=== PATIENT | male | born 2000 | race Caucasian/White ===

== ENCOUNTER 2025-01-31 18:34 | Emergency (ER) | payer OTHER, SELFPAY ==
--- NOTE | ~2025-01-31 | XR_ITS ---
[id number] INDICATION: Right anterior lower rib pain COMPARISON: NONE PA CHEST: No acute pulmonary process is evident. Cardiac size and pulmonary vascularity are unremarkable There is no pleural effusion or pneumothorax. No consolidation is identified. RIGHT RIBS: 3 views of the right ribs demonstrate no acute rib fracture. IMPRESSION: 1. No acute pulmonary process. 2. No rib fracture is identified. Reviewed, dictated and finalized at location S.
[2025-01-31 18:51] VITALS: BP 120/72; PULSE 63; RESP 18; TEMP 37.1; O2SAT 99
--- NOTE | 2025-01-31 19:14 | ED.GENADULT ---
HPI - General Adult General Chief complaint: Unspecified Stated complaint: Right Side Pain Time Seen by Provider: 01/31/25 18:34 Source: patient Mode of arrival: ambulatory Limitations: no limitations History of Present Illness HPI narrative: Patient is a 24-year-old male who presents with right anterolateral rib pain for 3 days. Patient states he was working in a [place] accidentally swung an I-beam into his ribs. Patient did catch the I-beam so it did not knock him off of his feet. Patient having increased pain since yesterday with movement and breathing. Denies any shortness of breath or pain at rest. Related Data Allergies Allergy/AdvReac Type Severity Reaction Status Date / Time No Known Allergies Allergy Unknown Verified 01/31/25 18:42 Review of Systems Review of Systems: All systems reviewed & are unremarkable except as noted in HPI and below Constitutional: Constitutional: Denies body ache(s), Denies chills, Denies fatigue, Denies fever(s), Denies headache(s), Denies malaise and Denies weakness Eyes: Eyes: Denies blurry vision, Denies irritation and Denies loss of vision ENT: Denies otalgia, Denies headache(s), Denies nasal discharge, Denies sinus pain and Denies sore throat Cardiovascular: Cardiovascular: Denies chest pain, Denies irregular heart rhythm, Denies dyspnea and Reports dyspnea on exertion Respiratory: Respiratory: Denies dyspnea and Reports other (rib pain) Gastrointestinal: Gastrointestinal: Denies abdominal pain, Denies melena, Denies hematochezia, Denies diarrhea, Denies nausea and Denies vomiting Musculoskeletal: Musculoskeletal: Denies back pain, Denies myalgias and Denies arthralgias Integumentary/Breasts: Skin/Breast: Denies pruritus and Denies rash Neurologic: Denies headache(s), Denies loss of vision and Denies weakness Psychiatric: Psychiatric: Reports no additional psychiatric complaints Endocrine: Endocrine: Denies fatigue PMFSH Comments At time of signature, agree with nursing past medical, surgical, social and family history. There is no relevant family history pertinent to the presenting complaint. Exam Const: General: cooperative, healthy appearing, comfortable, no acute distress and well nourished Nutritional Appearance: well nourished Orientation/consciousness: patient oriented x3 Limitations: no limitations HENMT: Head: normal to inspection, normocephalic and atraumatic Ears: hearing grossly normal bilaterally and external ears normal Face/Nose/Sinus: Normal external nose present, normal facial exam and face symmetric Face and sinus: normal facial exam and face symmetric Mouth: Yes lip normal Eyes: General: appearance normal, both eyes and all related structures Alignment and Position: alignment normal and position normal Periorbital: periorbital findings normal Eyelids: eyelids normal Pupils: Equal, round and reactive pupils present EOM: EOMs intact bilaterally Neck: Neck: normal visual inspection, full ROM and supple Chest: Chest palpation & inspection: normal inspection of the chest and tenderness rib (No ecchymosis) right mid-clavicular line involving the 9th rib and involving the 10th rib Resp: Effort & Inspection: normal respiratory effort and able to speak in complete sentences Auscultation: clear to auscultation bilaterally Cardio: Rate: regular rate Rhythm: regular rhythm Heart sounds: S1 normal heart sound present and S2 normal heart sound present GI: Inspection: normal to inspection Skin: General skin exam: normal color and no rashes or lesions noted Neuro: General: patient oriented x3 and moves all extremities Cranial nerves: Yes Equal, round and reactive pupils present Speech: normal speech Gait exam (Neuro): Normal gait present Extrem: General: normal to inspection, full ROM and no edema Psych: Appearance: grossly normal and well kempt Mental Status: mental status grossly normal Speech and movement: Normal speech and movement present Affect: normal affect Attitude: cooperative Thought process: Normal thought process present Course Course Emergency Course: Patient is aware of diagnosis, understands and agrees to treatment plan. Anticipatory guidance given. Patient agrees to follow-up as directed and is aware of reasons to seek care at the emergency department. Portions of this record may have been created with voice recognition software Level of Care: Express Care Visit Vital Signs Vital signs: Vital Signs Temperature 37.1 C 01/31/25 18:51 Pulse Rate 63 01/31/25 18:51 Respiratory Rate 18 01/31/25 18:51 Blood Pressure 120/72 01/31/25 18:51 Pulse Oximetry 99 01/31/25 18:51 Oxygen Delivery Room Air 01/31/25 18:51 Temperature 37.1 C 01/31/25 18:51 Pulse Rate 63 01/31/25 18:51 Respiratory Rate 18 01/31/25 18:51 Blood Pressure 120/72 01/31/25 18:51 Pulse Oximetry 99 01/31/25 18:51 Oxygen Delivery Room Air 01/31/25 18:51 Reviewed Medical Decision Making MDM Narrative Medical decision making narrative: Patient reports he has had dislocated ribs in the past and had a have a chiropractor but then back in place. Patient is aware on conservative treatments for rib pain. Will treat with ibuprofen and some muscle relaxers in case patient experiences spasms. Pt well hydrated appearing, in no respiratory distress, hemodynamically stable. Recommend supportive care. The patient is stable at time of discharge the clinical impression was discussed and the patient was given the opportunity to ask questions, which were addressed as completely as possible given the information available at present. Anticipatory guidance and return to care precautions were discussed and the importance of primary care follow-up was stressed and encouraged. The patient voiced understanding of the plan, indications to return, and the need for follow-up. Exam findings show no acute concerns or changes Patient is appropriate for outpatient treatment and follow-up. Differential Diagnosis Differential Diagnosis: Rib fracture, rib contusion Vital Signs Vital Signs: Vital Signs Temperature 37.1 C 01/31/25 18:51 Pulse Rate 63 01/31/25 18:51 Respiratory Rate 18 01/31/25 18:51 Blood Pressure 120/72 01/31/25 18:51 Pulse Oximetry 99 01/31/25 18:51 Oxygen Delivery Room Air 01/31/25 18:51 Temperature 37.1 C 01/31/25 18:51 Pulse Rate 63 01/31/25 18:51 Respiratory Rate 18 01/31/25 18:51 Blood Pressure 120/72 01/31/25 18:51 Pulse Oximetry 99 01/31/25 18:51 Oxygen Delivery Room Air 01/31/25 18:51 Reviewed Imaging Data Radiologist's impression: [id number] INDICATION: Right anterior lower rib pain COMPARISON: NONE PA CHEST: No acute pulmonary process is evident. Cardiac size and pulmonary vascularity are unremarkable There is no pleural effusion or pneumothorax. No consolidation is identified. RIGHT RIBS: 3 views of the right ribs demonstrate no acute rib fracture. IMPRESSION: 1. No acute pulmonary process. 2. No rib fracture is identified. Reviewed, dictated and finalized at location S. Discharge Plan Discharge Clinical Impression: Contusion of rib on right side Qualifiers: Encounter type: initial encounter Qualified Code(s): S29.8XXA - Other specified injuries of thorax, initial encounter Patient Disposition: Home Condition: Stable Instructions: Rib Contusion (ED) Additional Instructions: Pain may get worse for a week and last for up to eight weeks.The most important thing is to get your pain under control. Breathing exercises will not be effective unless your pain is controlled. Take your pain relieving medications as prescribed by your doctor, and continue to speak with your primary care doctor about maintaining your pain relief. Strenuous activities should be avoided for the first 3-4 weeks, after which you can commence physical activity as pain allows. If the pain is increasing you may be doing too much. Cough and deep breath at least 10 times per hour. Try holding a cushion firmly against the painful site when you mac and cough to decrease the pain. Sit out of bed and keep moving as much as you feel comfortable. This will decrease the risk of developing lung complications. Patient Language: Macedonian Prescriptions: New ibuprofen 600 mg tablet 600 mg PO TID PRN (Reason: pain) Qty: 30 0RF baclofen 10 mg tablet 10 mg PO TID 5 Days Qty: 15 0RF Follow-up/Referrals: Leila,Rj Lilly MD [Primary Care Provider, Unknown] - 3 Days Stand Alone Forms: Work/School Release IP Time of Disposition: 19:36
== END 2025-01-31 19:38 | disposition home or self-care (01) ==
PROVIDERS: Emergency Provider Nurse Practitioner Family; PCP Family Medicine
DX: S20.211A Contusion of right front wall of thorax, initial encounter (principal); W20.8XXA Other cause of strike by thrown, projected or falling object, initial encounter; Y99.0 Civilian activity done for income or pay
CPT/HCPCS: 71101; 99203; G0463